=== PATIENT | female | born 1960 | race Caucasian/White ===

== ENCOUNTER 2017-01-20 11:23 | Emergency (ER) | payer MEDICAID ==
[~2017-01-20] VITALS: Ht 160 cm; Wt 63.5 kg
[~2017-01-20 11:23] MED LIST: FLAGYL250 MG PO; LAC PO; LEV500 PO; METP PO; PRILOSEC20 MG PO
[2017-01-20 15:29] VITALS: BP 127/91
== END 2017-01-20 15:29 | disposition home or self-care (01) ==
LOC: ED 11:23
DX: G56.01 Carpal tunnel syndrome, right upper limb (principal); E11.9 Type 2 diabetes mellitus without complications; E78.00 Pure hypercholesterolemia, unspecified; F17.210 Nicotine dependence, cigarettes, uncomplicated; Z71.6 Tobacco abuse counseling; Z79.84 Long term (current) use of oral hypoglycemic drugs
CPT/HCPCS: 99406

== ENCOUNTER 2017-07-13 17:14 | Emergency (ER) | payer MEDICAID ==
[~2017-07-13] VITALS: Ht 160 cm; Wt 64.0 kg
[2017-07-13 17:56] VITALS: BP 119/79; Ht 160 cm; Wt 64.0 kg
== END 2017-07-13 20:22 | disposition left against medical advice (07) ==
LOC: ED 17:14
DX: Z53.21 Procedure and treatment not carried out due to patient leaving prior to being seen by health care provider (principal)

== ENCOUNTER 2017-07-14 13:07 | Emergency (ER) | payer MEDICAID ==
[~2017-07-14] VITALS: Ht 154.9 cm; Wt 64.4 kg
[2017-07-14 13:29] VITALS: Ht 154.9 cm; Wt 64.4 kg
[2017-07-14 18:00] VITALS: BP 146/94
== END 2017-07-14 22:44 | disposition home or self-care (01) ==
LOC: ED 13:07
DX: S39.011A Strain of muscle, fascia and tendon of abdomen, initial encounter (principal); R73.9 Hyperglycemia, unspecified; E78.00 Pure hypercholesterolemia, unspecified; Z90.49 Acquired absence of other specified parts of digestive tract; Z90.710 Acquired absence of both cervix and uterus; Z85.43 Personal history of malignant neoplasm of ovary; Z87.11 Personal history of peptic ulcer disease; Z88.0 Allergy status to penicillin; X58.XXXA Exposure to other specified factors, initial encounter; Y93.89 Activity, other specified; Y99.8 Other external cause status; Y92.89 Other specified places as the place of occurrence of the external cause
CPT/HCPCS: 82962; J1885